=== PATIENT | female | born 1935 | race Caucasian/White ===

== ENCOUNTER 2017-11-25 10:29 | Observation (INO) | payer MEDICARE ==
[2017-11-25 13:49] LABS: ADD MAN DIFF? NO
[2017-11-25 13:52] LABS: BASOPHILS % 0.3 % (0.0-2.0); EOSINOPHILS % 0.3 % (0.0-7.0); HEMATOCRIT 41.6 % (37.0-47.0); HEMOGLOBIN 13.8 g/dl (12.0-16.0); LYMPHOCYTES # 1.8 10^3/ul (0.8-2.9); LYMPHOCYTES % 16.8 % (15.0-51.0); MEAN CORPUSCULAR HEMOGLOBIN 29.4 pg (29.0-33.0); MEAN CORPUSCULAR HGB CONC 33.2 g/dl (32.0-37.0); MEAN CORPUSCULAR VOLUME 88.7 fl (82.0-101.0); MEAN PLATELET VOLUME 9.6 fl (7.4-10.4); MONOCYTE # 0.5 10^3/ul (0.3-0.9); MONOCYTES % 4.6 % (0.0-11.0); NEUTROPHIL # 8.3 10^3/ul (1.6-7.5); NEUTROPHILS % 77.6 % (39.0-77.0); PLATELET COUNT 237 10^3/UL (140-415); RED BLOOD COUNT 4.69 10^6/ul (4.20-5.40); RED CELL DISTRIBUTION WIDTH 13.7 % (11.5-14.5)
[2017-11-25 13:52] LABS: WHITE BLOOD COUNT 10.7 10^3/ul (4.8-10.8)
[2017-11-25] MEDS: HYDROmorphONE 1 MG/ML SYG IV (13:55)
[2017-11-25] MEDS: ONDANSETRON 4 MG INJ IV (13:55)
[2017-11-25] MEDS: BARIUM SULF 2% 450 ML BTL (BERRY SMOOTHIE) PO (13:55)
[2017-11-25 14:10] LABS: ALANINE AMINOTRANSFERASE 24 IU/L (13-69); ALBUMIN 4.2 g/dl (3.3-4.9); ALBUMIN/GLOBULIN RATIO 1.23; ALKALINE PHOSPHATASE 113 IU/L (42-121); ANION GAP 12 (8-16); ASPARTATE AMINO TRANSFERASE 24 IU/L (15-46); BILIRUBIN,INDIRECT 1.2 mg/dl (0-1.1); BILIRUBIN,TOTAL 1.2 mg/dl (0.2-1.3); BLOOD UREA NITROGEN 14 mg/dl (7-20); CALCIUM 9.2 mg/dl (8.4-10.2); CARBON DIOXIDE 24 mmol/L (21-31); CHLORIDE 108 mmol/L (97-110); CREATININE 0.62 mg/dl (0.44-1.00); GLUCOSE 97 mg/dl (70-220); LIPASE 97 U/L (23-300); POTASSIUM 3.9 mmol/L (3.5-5.1); SODIUM 140 mmol/L (135-144); TOTAL PROTEIN 7.6 g/dl (6.1-8.1)
[2017-11-25 14:21] LABS: TROPONIN-I < 0.012 ng/ml (0.00-0.12)
[2017-11-25] MEDS: SOD CHLORIDE 0.9% 100 ML (15:16)
[2017-11-25] MEDS: IOHEXOL 300MG/ML 150 ML BTL (15:16)
[2017-11-25] MEDS ORDERED: ONDANSETRON 4 MG INJ IV ×2 (18:00→18:30)
[2017-11-25] MEDS ORDERED: ACETAMINOPHEN 325 MG TAB PO (18:30)
[2017-11-25] MEDS ORDERED: oxyCODONE 5 MG TAB PO (18:30)
[2017-11-25] MEDS ORDERED: NACL 0.9% 3 ML SYG IV (18:30)
[2017-11-25] MEDS ORDERED: LORAZEPAM 0.5 MG TAB PO (18:30)
[2017-11-25] MEDS ORDERED: LABETALOL HCL 20MG INJ IV (18:30)
[2017-11-25] MEDS ORDERED: HYDROCODONE/APAP (5/325) TAB PO (18:30)
[2017-11-25] MEDS ORDERED: BISACODYL (EC) 5 MG TAB PO (18:30)
[2017-11-25] MEDS: LIDOCAINE/MYLANTA 40 ML BTL PO (18:51)
[2017-11-25] MEDS: SOD CHLORIDE 0.9% 1,000 ML IV (18:51)
[2017-11-25] MEDS: PANTOPRAZOLE (EC) 40 MG TAB PO (18:51)
[2017-11-25] MEDS: FAMOTIDINE 20 MG INJ IV (18:56)
[2017-11-25] MEDS: ASPIRIN 81 MG TAB PO (21:00)
[2017-11-25] MEDS: HEPARIN 5,000 UNIT/0.5 ML VIAL SC (21:08)
[2017-11-26 01:42] LABS: TROPONIN-I < 0.012 ng/ml (0.00-0.12)
[2017-11-26] MEDS: PANTOPRAZOLE (EC) 40 MG TAB PO (05:06)
[2017-11-26] MEDS: morphine 2 MG INJ IV ×2 (05:06→13:42)
[2017-11-26] MEDS: HEPARIN 5,000 UNIT/0.5 ML VIAL SC ×2 (05:14→14:00)
[2017-11-26 08:07] LABS: ADD MAN DIFF? NO
[2017-11-26 08:09] LABS: BASOPHILS % 0.3 % (0.0-2.0); EOSINOPHILS # 0.1 10^3/ul (0.0-0.5); EOSINOPHILS % 2.2 % (0.0-7.0); HEMOGLOBIN 12.2 g/dl (12.0-16.0); LYMPHOCYTES # 1.7 10^3/ul (0.8-2.9); LYMPHOCYTES % 26.5 % (15.0-51.0); MEAN CORPUSCULAR HEMOGLOBIN 29.3 pg (29.0-33.0); MEAN CORPUSCULAR VOLUME 88.9 fl (82.0-101.0); MEAN PLATELET VOLUME 9.8 fl (7.4-10.4); MONOCYTE # 0.5 10^3/ul (0.3-0.9); MONOCYTES % 7.5 % (0.0-11.0); PLATELET COUNT 253 10^3/UL (140-415); RED BLOOD COUNT 4.16 10^6/ul (4.20-5.40); RED CELL DISTRIBUTION WIDTH 13.3 % (11.5-14.5)
[2017-11-26 08:09] LABS: WHITE BLOOD COUNT 6.3 10^3/ul (4.8-10.8)
[2017-11-26 08:37] LABS: ALANINE AMINOTRANSFERASE 30 IU/L (13-69); ALBUMIN 3.6 g/dl (3.3-4.9); ALBUMIN/GLOBULIN RATIO 1.05; ALKALINE PHOSPHATASE 107 IU/L (42-121); ANION GAP 12 (8-16); ASPARTATE AMINO TRANSFERASE 20 IU/L (15-46); BILIRUBIN,INDIRECT 1.6 mg/dl (0-1.1); BILIRUBIN,TOTAL 1.6 mg/dl (0.2-1.3); BLOOD UREA NITROGEN 11 mg/dl (7-20); CALCIUM 9.2 mg/dl (8.4-10.2); CARBON DIOXIDE 26 mmol/L (21-31); CHLORIDE 106 mmol/L (97-110); CHOL/HDL RATIO 2.8 RATIO; CHOLESTEROL 136 mg/dl (100-200); CREATININE 0.76 mg/dl (0.44-1.00); GLUCOSE 123 mg/dl (70-220); HDL CHOLESTEROL 47 mg/dl (33-92); LDL CHOLESTEROL,CALCULATED 71 mg/dl; MAGNESIUM 2.2 mg/dl (1.7-2.5); POTASSIUM 4.3 mmol/L (3.5-5.1); SODIUM 140 mmol/L (135-144); TRIGLYCERIDES 91 mg/dl (0-149)
[2017-11-26] MEDS: SERTRALINE 50 MG TAB PO (09:00)
[2017-11-26] MEDS: METOPROLOL 25 MG TAB PO (09:35)
[2017-11-26 09:42] LABS: TROPONIN-I < 0.012 ng/ml (0.00-0.12)
== END 2017-11-26 15:48 | disposition home or self-care (01) ==
LOC: MS4 17:51 → E/R 10:29
DX: R07.9 Chest pain, unspecified (principal); I10 Essential (primary) hypertension; K44.9 Diaphragmatic hernia without obstruction or gangrene; K21.9 Gastro-esophageal reflux disease without esophagitis; F32.9 Major depressive disorder, single episode, unspecified; D73.4 Cyst of spleen; N28.1 Cyst of kidney, acquired; E11.9 Type 2 diabetes mellitus without complications; E78.00 Pure hypercholesterolemia, unspecified; Z88.0 Allergy status to penicillin
CPT/HCPCS: 71045; 74177; 80053; 80061; 83690; 83735; 84443; 84484; 85025; 93005; 93306; 96372; 96374; 96375; 99285-25; G0378